=== PATIENT | female | born 1955 | race African-American/Black ===

== ENCOUNTER 2019-02-26 11:56 | Emergency (ER) | payer MEDICAID, MEDICARE ==
[~2019-02-26] VITALS: Ht 165.1 cm; Wt 74.6 kg
[~2019-02-26 11:56] MED LIST: AMLO5TAB88 PO; ASPI-1393 PO; BRIM.2 BOTHEYE; GABA-290 PO; GLIP10TA10 PO; INSU3INS6 SQ; LISI10TA5 PO; LOVA10TA54 PO; METF-416 PO; NOVOLOG SUBCUT; RANI150T7 PO; SIMV20TA6 PO
[2019-02-26 12:04] VITALS: BP 162/74
[2019-02-26] MEDS ORDERED: ATOR40TA70 MT (16:50)
[2019-02-26] MEDS ORDERED: PREG75CA PO (16:51)
== END 2019-02-26 14:48 | disposition left against medical advice (07) ==
LOC: ER 11:56
DX: Z53.21 Procedure and treatment not carried out due to patient leaving prior to being seen by health care provider (principal); E11.9 Type 2 diabetes mellitus without complications; E78.00 Pure hypercholesterolemia, unspecified; I10 Essential (primary) hypertension; Z86.73 Personal history of transient ischemic attack (TIA), and cerebral infarction without residual deficits
CPT/HCPCS: 82962

== ENCOUNTER 2019-02-26 15:08 | Inpatient (IN) | payer MEDICARE ==
[~2019-02-26] VITALS: Ht 165.1 cm; Wt 76.7 kg
[2019-02-26 16:00] VITALS: BP 128/63
[2019-02-26] MEDS ORDERED: ATOR40TA70 MT (16:50)
[2019-02-26] MEDS ORDERED: PREG75CA PO (16:51)
[2019-02-26] MEDS ORDERED: CLONIDINE 0.1MG TABLET PO PRN (17:30)
[2019-02-26] MEDS ORDERED: ACETAMINOPHEN 325MG TABLET PO PRN (17:30)
[2019-02-26] MEDS ORDERED: DIPHENHYDRAMINE 50MG/ML VIAL IV PRN (17:30)
[2019-02-26] MEDS ORDERED: MORPHINE SULFATE 2 MG/ML CPJ (NOT FOR IM USE) IV PRN (17:30)
[2019-02-26] MEDS ORDERED: ONDANSETRON HCL 4MG/2ML INJ IV PRN (17:30)
[2019-02-26] MEDS ORDERED: IPRATROPIUM/ALBUTEROL 0.5-3(2.5)MG/3ML NEB HHN PRN (17:30)
[2019-02-26] MEDS ORDERED: MAGNESIUM/ALUMINUM HYDROXIDE/SIMETHICONE 30ML UDC PO PRN (17:30)
[2019-02-26] MEDS ORDERED: DEXTROSE 50% WATER 50ML SYRINGE IV PRN (18:00)
[2019-02-26 18:01] VITALS: BP 128/63
[2019-02-26 19:34] LABS: CLARITY URINE CLOUDY (CLEAR); COLOR URINE YELLOW (YELLOW); KETONES URINE NEGATIVE (NEGATIVE); LEUKOCYTE ESTERASE URINE TRACE (NEGATIVE); NITRITE URINE NEGATIVE (NEGATIVE); OCCULT BLOOD URINE NEGATIVE (NEGATIVE); PROTEIN URINE TRACE (NEGATIVE); SPECIFIC GRAVITY URINE 1.012 (1.005-1.030); UROBILINOGEN URINE 0.2 E.U./dL (0.2-1.0)
[2019-02-26 20:00] VITALS: BP 159/62
[2019-02-26] MEDS ORDERED: PIPERACILLIN/TAZOBACTAM 3.375 G in DEXT 5% WATER 100 ML IV NR (20:00)
[2019-02-26 20:10] LABS: BASOPHILS % 0.8 % (0.0-2.0); EOSINOPHILS % 0.8 % (0.0-5.0); HEMATOCRIT. 30.3 % (36.0-48.0); HEMOGLOBIN. 9.9 g/dL (12.0-16.0); LYMPHOCYTES % 23.4 % (20.0-50.0); MEAN CORPUSCULAR HEMOGLOBIN 26.6 pg (28.0-32.0); MEAN CORPUSCULAR VOLUME 81.7 fL (81.0-99.0); MEAN PLATELET VOLUME 7.9 fl (7.4-10.4); MONOCYTES % 5.8 % (2.0-8.0); NEUTROPHILS % 69.2 % (40.0-76.0); PLATELET 287 x1000/uL (130-400); RED BLOOD CELL COUNT 3.71 mill/uL (4.2-5.4); RED CELL DISTRIBUTION WIDTH 15.2 % (11.6-14.6)
[2019-02-26 20:20] LABS: PHOSPHORUS 2.8 mg/dL (2.5-4.9)
[2019-02-26] MEDS: INSULIN LISPRO 100 UNITS/ML SUBCUT SCH (20:27)
[2019-02-26] MEDS: BLOOD SUGAR DIAGNOSTIC STRIP TEST SCH (20:27)
[2019-02-27] VITALS: BP 149/72
[2019-02-27] MEDS: SILVER SULFADIAZINE 1% CREAM 50GM TOP SCH ×2 (00:05→08:40)
[2019-02-27] MEDS: PIPERACILLIN/TAZOBACTAM 3.375 G in DEXT 5% WATER 100 ML IV SCH ×4 (01:52→20:55)
[2019-02-27 04:00] VITALS: BP 154/70
[2019-02-27] MEDS: BLOOD SUGAR DIAGNOSTIC STRIP TEST SCH ×4 (07:42→21:00)
[2019-02-27] MEDS: INSULIN LISPRO 100 UNITS/ML SUBCUT SCH ×4 (07:43→21:00)
[2019-02-27 08:00] VITALS: BP 147/73
[2019-02-27] MEDS: FLUCONAZOLE 100MG TABLET PO SCH (10:03)
[2019-02-27 12:00] VITALS: BP 135/59
[2019-02-27 16:00] VITALS: BP_SYST 144; BP_SYST 153; BP_DIAS 69; BP_DIAS 73
[2019-02-27 20:00] VITALS: BP 145/70
[2019-02-28] VITALS: BP 166/65
[2019-02-28] MEDS: PIPERACILLIN/TAZOBACTAM 3.375 G in DEXT 5% WATER 100 ML IV SCH ×4 (01:48→20:42)
[2019-02-28 04:00] VITALS: BP 133/74
[2019-02-28] MEDS: BLOOD SUGAR DIAGNOSTIC STRIP TEST SCH ×4 (06:26→20:42)
[2019-02-28] MEDS: INSULIN LISPRO 100 UNITS/ML SUBCUT SCH ×4 (07:37→21:23)
[2019-02-28 08:00] VITALS: BP 146/66
[2019-02-28] MEDS: FLUCONAZOLE 100MG TABLET PO SCH (08:05)
[2019-02-28] MEDS: SILVER SULFADIAZINE 1% CREAM 50GM TOP SCH (08:05)
[2019-02-28 12:00] VITALS: BP 141/71
[2019-02-28 16:00] VITALS: BP 146/78
[2019-02-28 23:54] VITALS: BP 101/68
[2019-03-01] VITALS: BP 148/76
[2019-03-01] MEDS: PIPERACILLIN/TAZOBACTAM 3.375 G in DEXT 5% WATER 100 ML IV SCH ×2 (02:43→08:27)
[2019-03-01 04:00] VITALS: BP 148/83
[2019-03-01] MEDS: BLOOD SUGAR DIAGNOSTIC STRIP TEST SCH ×2 (06:43→12:28)
[2019-03-01] MEDS: INSULIN LISPRO 100 UNITS/ML SUBCUT SCH ×2 (07:17→12:35)
[2019-03-01 07:55] LABS: BASOPHILS % 1.1 % (0.0-2.0); HEMATOCRIT. 30.3 % (36.0-48.0); LYMPHOCYTES % 25.8 % (20.0-50.0); MEAN CORPUSCULAR HEMOGLOBIN 26.7 pg (28.0-32.0); MEAN CORPUSCULAR VOLUME 81.3 fL (81.0-99.0); MONOCYTES % 8.2 % (2.0-8.0); NEUTROPHILS % 62.9 % (40.0-76.0); PLATELET 269 x1000/uL (130-400); RED BLOOD CELL COUNT 3.73 mill/uL (4.2-5.4); RED CELL DISTRIBUTION WIDTH 15.2 % (11.6-14.6)
[2019-03-01 07:57] LABS: CHLORIDE 108 mEq/L (98-107)
[2019-03-01 08:00] VITALS: BP 159/82
[2019-03-01] MEDS: SILVER SULFADIAZINE 1% CREAM 50GM TOP SCH (08:27)
[2019-03-01] MEDS: FLUCONAZOLE 100MG TABLET PO SCH (08:27)
[2019-03-01 12:00] VITALS: BP 157/70
[2019-03-01 13:06] VITALS: BP 156/72
== END 2019-03-01 14:16 | disposition home or self-care (01) | DRG 757 ==
LOC: 6EST 15:13
PROVIDERS: ADMIT Internal Medicine; ATTEND Internal Medicine
DX: B37.49 Other urogenital candidiasis (principal); N17.0 Acute kidney failure with tubular necrosis; E11.621 Type 2 diabetes mellitus with foot ulcer; E11.51 Type 2 diabetes mellitus with diabetic peripheral angiopathy without gangrene; B37.9 Candidiasis, unspecified; D64.9 Anemia, unspecified; E11.40 Type 2 diabetes mellitus with diabetic neuropathy, unspecified; E11.610 Type 2 diabetes mellitus with diabetic neuropathic arthropathy; E11.65 Type 2 diabetes mellitus with hyperglycemia; E78.00 Pure hypercholesterolemia, unspecified; E78.5 Hyperlipidemia, unspecified; F17.210 Nicotine dependence, cigarettes, uncomplicated; I10 Essential (primary) hypertension; I25.10 Atherosclerotic heart disease of native coronary artery without angina pectoris; K52.9 Noninfective gastroenteritis and colitis, unspecified; L97.519 Non-pressure chronic ulcer of other part of right foot with unspecified severity; E83.42 Hypomagnesemia; L97.529 Non-pressure chronic ulcer of other part of left foot with unspecified severity; M20.41 Other hammer toe(s) (acquired), right foot; L85.9 Epidermal thickening, unspecified; M20.42 Other hammer toe(s) (acquired), left foot; Z79.899 Other long term (current) drug therapy; Z85.038 Personal history of other malignant neoplasm of large intestine; Z98.62 Peripheral vascular angioplasty status; Z79.82 Long term (current) use of aspirin; Z79.4 Long term (current) use of insulin; Z91.013 Allergy to seafood; Z91.048 Other nonmedicinal substance allergy status
CPT/HCPCS: 36415; 71045; 73721; 80048; 80061; 81003; 82962; 83735; 84100; 84443; 87106; 93970; 97161; A6261; C1893; J1815; J2543; J7040; J7060

== ENCOUNTER 2020-11-09 17:44 | Emergency (ER) | payer MEDICARE, MEDICAID ==
[~2020-11-09] VITALS: Ht 165.1 cm; Wt 60.0 kg
[~2020-11-09 17:44] MED LIST changes: -ASPI-1393 PO; +ATOR40TA70 MT; +BENA5TAB6 PO; -GABA-290 PO; -GLIP10TA10 PO; -INSU3INS6 SQ; -LISI10TA5 PO; -LOVA10TA54 PO; -METF-416 PO; -NOVOLOG SUBCUT; -RANI150T7 PO; -SIMV20TA6 PO
[2020-11-09 19:52] LABS: BASOPHILS % 1.1 % (0.0-2.0); EOSINOPHILS % 1.9 % (0.0-5.0); HEMATOCRIT. 28.7 % (36.0-48.0); HEMOGLOBIN. 9.7 g/dL (12.0-16.0); LYMPHOCYTES % 23.5 % (20.0-50.0); MEAN CORPUSCULAR HEMOGLOBIN 27.2 pg (28.0-32.0); MEAN CORPUSCULAR VOLUME 80.4 fL (81.0-99.0); MEAN PLATELET VOLUME 7.9 fl (7.4-10.4); MONOCYTES % 6.5 % (2.0-8.0); PLATELET 335 x1000/uL (130-400); RED BLOOD CELL COUNT 3.57 mill/uL (4.2-5.4); RED CELL DISTRIBUTION WIDTH 15.2 % (11.6-14.6)
[2020-11-09 19:59] LABS: CHLORIDE 111 mEq/L (98-107)
[2020-11-09 20:04] LABS: C REACTIVE PROTEIN QUANT 0.8 mg/L (0.0-3.0)
[2020-11-09] MEDS ORDERED: CEPHALEXIN 250MG CAPSULE PO ONE (20:15)
[2020-11-09] MEDS ORDERED: CEPH500C2 MT (20:37)
[2020-11-09 20:47] VITALS: BP 150/70
== END 2020-11-09 21:07 | disposition home or self-care (01) ==
LOC: ER 17:51
DX: L03.031 Cellulitis of right toe (principal); H40.9 Unspecified glaucoma; E78.00 Pure hypercholesterolemia, unspecified; I10 Essential (primary) hypertension; E11.9 Type 2 diabetes mellitus without complications; Z85.9 Personal history of malignant neoplasm, unspecified; Z86.73 Personal history of transient ischemic attack (TIA), and cerebral infarction without residual deficits; Z89.421 Acquired absence of other right toe(s)
CPT/HCPCS: 36415; 73630; 80053; 82962; 85025; 85651; 86140; 99284

== ENCOUNTER → 2022-03-12 | Day surgery (SDC) | payer MEDICARE, MEDICAID ==
[~2022-03-12] VITALS: Ht 165.1 cm; Wt 59.9 kg
[~2022-03-12] MED LIST changes: +ASCO-456 PO; +BENA5TAB40 PO; -BENA5TAB6 PO; +BUPIVACAINE HCL/PF 0.5% (5MG/ML) 10ML ONE; +CEPH500C2 MT; +CIPR750T4 MT; +CLINDAMYCIN 600MG PREMIX 50 ML IV ONE; +FENTANYL CITRATE/PF 50MCG/ML 2ML VIAL ONE; +FERR325T6 PO; +GENTAMICIN SULF 40MG/ML 2ML VIAL ONE; +HYDROMORPHONE HCL/PF 2MG/ML CPJ IV PRN; +INSU100I28 SQ; +LIDOCAINE HCL 1% 10 MG/ML 10ML VIAL ONE; +LINA290C PO; +MEMA5TAB42 PO; +MIDAZOLAM HCL 2 MG/2 ML VIAL ONE; +ONDANSETRON HCL 4MG/2ML INJ IV PRN; +POLYMYXIN B SULFATE 500000 UNITS/VIAL ONE; +PROPOFOL 200MG/20ML VIAL IV ONE; +SODIUM CHLORIDE 0.9% 1,000 ML IV SCH; +VANCOMYCIN HCL 1 GM/VIAL ONE; +VIT1TABL62 PO
== END | disposition home or self-care (01) ==
LOC: OR 10:33
PROVIDERS: ATTEND Podiatrist Foot & Ankle Surgery
DX: E11.610 Type 2 diabetes mellitus with diabetic neuropathic arthropathy (principal); E11.40 Type 2 diabetes mellitus with diabetic neuropathy, unspecified; I25.10 Atherosclerotic heart disease of native coronary artery without angina pectoris; I10 Essential (primary) hypertension; E78.00 Pure hypercholesterolemia, unspecified; Z79.84 Long term (current) use of oral hypoglycemic drugs; Z79.899 Other long term (current) drug therapy; Z98.890 Other specified postprocedural states; Z20.822 Contact with and (suspected) exposure to COVID-19
CPT/HCPCS: 28110; 73630; 82962; 87426; 88311; C9803; J2250; J2704; J3010; J3370; J3490; J7030; J1580

== ENCOUNTER 2023-06-14 14:09 | Emergency (ER) | payer MEDICARE, MEDICAID ==
[~2023-06-14] VITALS: Ht 162.6 cm; Wt 73.0 kg
[~2023-06-14 14:09] MED LIST changes: -BRIM.2 BOTHEYE; +BRIM15DR2 EACHEYE; -BUPIVACAINE HCL/PF 0.5% (5MG/ML) 10ML ONE; -CEPH500C2 MT; +CHOL400D7 PO; -CIPR750T4 MT; -CLINDAMYCIN 600MG PREMIX 50 ML IV ONE; -FENTANYL CITRATE/PF 50MCG/ML 2ML VIAL ONE; -GENTAMICIN SULF 40MG/ML 2ML VIAL ONE; -HYDROMORPHONE HCL/PF 2MG/ML CPJ IV PRN; +INSU100I24 SUBCUT; -LIDOCAINE HCL 1% 10 MG/ML 10ML VIAL ONE; +MEMA1CAP2 PO; -MIDAZOLAM HCL 2 MG/2 ML VIAL ONE; -ONDANSETRON HCL 4MG/2ML INJ IV PRN; -POLYMYXIN B SULFATE 500000 UNITS/VIAL ONE; -PROPOFOL 200MG/20ML VIAL IV ONE; +SITA50TA3 PO; -SODIUM CHLORIDE 0.9% 1,000 ML IV SCH; -VANCOMYCIN HCL 1 GM/VIAL ONE
[2023-06-14 14:12] VITALS: O2SAT 100
[2023-06-14] MEDS: IBUPROFEN 400MG TABLET PO ONE (18:00)
[2023-06-14 19:38] VITALS: BP 148/87; PULSE 80; RESP 17; TEMP 98
== END 2023-06-14 19:43 | disposition home or self-care (01) ==
LOC: ER 14:09
DX: M25.561 Pain in right knee (principal); E11.9 Type 2 diabetes mellitus without complications; I10 Essential (primary) hypertension; E78.00 Pure hypercholesterolemia, unspecified; Z79.899 Other long term (current) drug therapy; Z88.0 Allergy status to penicillin; Z98.890 Other specified postprocedural states; Z86.73 Personal history of transient ischemic attack (TIA), and cerebral infarction without residual deficits; W01.0XXA Fall on same level from slipping, tripping and stumbling without subsequent striking against object, initial encounter; Y93.89 Activity, other specified; Y92.89 Other specified places as the place of occurrence of the external cause; Y99.8 Other external cause status
CPT/HCPCS: 73502; 73551; 73562; 99284